=== PATIENT | female | born 1955 | race Caucasian/White ===

== ENCOUNTER → 2024-01-02 07:09 | Outpatient (REF) | payer OTHER, SELFPAY | LOC: WDC 07:09 | PROVIDERS: ATTENDING PHYSICIAN Nurse Practitioner Primary Care | DX: Z12.31 Encounter for screening mammogram for malignant neoplasm of breast (principal) | CPT/HCPCS: 77063; 77067 ==

== ENCOUNTER → 2025-01-02 07:50 | Outpatient (REF) | payer OTHER, SELFPAY | LOC: WDC 07:50 | PROVIDERS: ATTENDING PHYSICIAN Nurse Practitioner Primary Care | DX: Z12.31 Encounter for screening mammogram for malignant neoplasm of breast (principal) | CPT/HCPCS: 77063; 77067 ==

== ENCOUNTER 2025-02-19 06:21 | Day surgery (SDC) | payer OTHER, SELFPAY | END 2025-02-19 09:48 | disposition home or self-care (01) | LOC: GI 06:21 | PROVIDERS: ATTENDING PHYSICIAN Surgery | DX: Z12.11 Encounter for screening for malignant neoplasm of colon (principal); L29.9 Pruritus, unspecified; K64.8 Other hemorrhoids; K57.30 Diverticulosis of large intestine without perforation or abscess without bleeding; K64.4 Residual hemorrhoidal skin tags; D12.3 Benign neoplasm of transverse colon; D12.5 Benign neoplasm of sigmoid colon; D12.8 Benign neoplasm of rectum | CPT/HCPCS: 45385; 45380; 88305 ==

== ENCOUNTER 2025-03-26 06:11 | Day surgery (SDC) | payer OTHER, SELFPAY ==
[2025-03-25 13:43] VITALS: BMI 20.5
[2025-03-26] VITALS (7 sets, daily range): BP systolic 96–129; BP diastolic 55–74; BMI 20.8
[2025-03-26] MEDS: NORMOSOL-R/PLASMALYTE-A 1000 IV (13:29)
--- NOTE | 2025-03-26 18:45 | SUR.PHASEI ---
Rec'd sleepy on stretcher, hob elevated low fowlers, IV infusing well, oriented x 3 by RN reassured, denies c/o
--- NOTE | 2025-03-26 18:49 | SUR.PHASEI ---
Alert, awake, states 'I'm starving' reassured, vss
== END 2025-03-26 15:15 | disposition home or self-care (01) ==
LOC: SDS 06:11
PROVIDERS: ATTENDING PHYSICIAN Surgery; FAMILY PHYSICIAN Nurse Practitioner Primary Care
DX: K64.3 Fourth degree hemorrhoids (principal); K64.4 Residual hemorrhoidal skin tags; K62.1 Rectal polyp
CPT/HCPCS: 46945; 36415; 88304; 93005